=== PATIENT | female | born 1995 | race Two or more races ===

== ENCOUNTER 2018-05-10 10:52 | Outpatient (CLI) | payer OTHER ==
[~2018-05-10] VITALS: Ht 165.1 cm; Wt 82.7 kg
[2018-05-10 11:18] VITALS: BP 94/59
[2018-05-10] MEDS ORDERED: PREN-3 PO (11:46)
== END 2018-05-10 12:10 | disposition home or self-care (01) ==
LOC: LDOP 10:52
PROVIDERS: ATTEND Obstetrics & Gynecology
DX: O99.413 Diseases of the circulatory system complicating pregnancy, third trimester (principal); Z3A.38 38 weeks gestation of pregnancy
CPT/HCPCS: 59025; 76819; 99211; G0463

== ENCOUNTER 2018-05-22 22:45 | Outpatient (CLI) | payer OTHER ==
[~2018-05-22] VITALS: Ht 165.1 cm; Wt 82.0 kg
[~2018-05-22 22:45] MED LIST: PREN-3 PO
[2018-05-23] MEDS ORDERED: ZOLPIDEM 5MG TABLET ONE (02:33)
[2018-05-23] MEDS ORDERED: ZOLPIDEM 5MG TABLET PO SCH (21:00)
== END 2018-05-23 02:45 | disposition home or self-care (01) ==
LOC: LDOP 22:45
PROVIDERS: ATTEND Obstetrics & Gynecology
DX: Z34.80 Encounter for supervision of other normal pregnancy, unspecified trimester (principal); Z3A.00 Weeks of gestation of pregnancy not specified
CPT/HCPCS: 59025; 99211; G0463

== ENCOUNTER 2018-05-23 08:39 | Outpatient (CLI) | payer OTHER ==
[~2018-05-23] VITALS: Ht 165.1 cm; Wt 82.7 kg
[2018-05-23 09:39] VITALS: BP 116/64
== END 2018-05-23 10:08 | disposition home or self-care (01) ==
LOC: LDOP 08:39
PROVIDERS: ATTEND Obstetrics & Gynecology
DX: Z34.80 Encounter for supervision of other normal pregnancy, unspecified trimester (principal); Z3A.00 Weeks of gestation of pregnancy not specified
CPT/HCPCS: 59025; 99211; G0463

== ENCOUNTER 2018-05-23 21:25 | Inpatient (IN) | payer OTHER ==
[~2018-05-23] VITALS: Ht 165.1 cm; Wt 84.0 kg
[~2018-05-23 21:25] MED LIST changes: +CARBOPROST TROMETHAMINE 250 MCG/ML, 1ML IM ONE; +METHYLERGONOVINE 0.2 MG/ML IM ONE
[2018-05-23] MEDS ORDERED: LACTATED RINGERS 1,000 ML IV SCH ×2 (21:31→21:34)
[2018-05-23] MEDS ORDERED: D5%-LACTATED RINGERS 1,000 ML IV SCH (21:31)
[2018-05-23] MEDS ORDERED: OXYTOCIN 30U/ 0.9% NaCL 500ML 500 ML IV PRN (21:31)
[2018-05-23] MEDS ORDERED: OXYTOCIN 30U/ 0.9% NaCL 500ML 500 ML IV ONE (21:31)
[2018-05-23] MEDS ORDERED: FENTANYL/BUPIV./NS/PF 250 ML EPIDCONT SCH (21:34)
[2018-05-23] MEDS ORDERED: FENTANYL PF 100 MCG/2ML ONE ×3 (21:37→22:40)
[2018-05-23] MEDS ORDERED: NEWBORN KIT ONE (21:37)
[2018-05-23] MEDS ORDERED: OXYTOCIN 30U/ 0.9% NaCL 500ML 500 ML ONE (21:37)
[2018-05-23] MEDS: FENTANYL PF 100 MCG/2ML IVPush PRN ×2 (21:46→22:34)
[2018-05-23] MEDS ORDERED: CALCIUM CARBONATE 500 MG TAB.CHEW PO PRN (22:00)
[2018-05-23] MEDS ORDERED: ONDANSETRON 2MG/ML, 2ML IVPush PRN (22:00)
[2018-05-23] MEDS ORDERED: FENTANYL PF 100 MCG/2ML IV PRN (22:00)
[2018-05-23] MEDS ORDERED: LACTATED RINGERS 1,000 ML IVBOLUS PRN (22:00)
[2018-05-23] MEDS ORDERED: TERBUTALINE 1 MG/ML, 1ML IVPush PRN (22:00)
[2018-05-23 22:02] LABS: BASOPHILS # (AUTO) 0.08 x10^3/uL (0-0.3); BASOPHILS % (AUTO) 1 % (0-1); EOSINOPHILS % (AUTO) 0 % (1-7); LYMPHOCYTES # (AUTO) 1.09 x10^3/uL (1-6.1); LYMPHOCYTES % (AUTO) 8 % (22-44); MD NO; MEAN CORPUSCULAR HEMOGLOBIN 26.9 pg (27.0-34.8); MEAN CORPUSCULAR VOLUME 81.3 fL (80-100); MEAN PLATELET VOLUME 9.9 fL (7.4-10.4); MONOCYTES # (AUTO) 0.87 x10^3/uL (0-1.4); MONOCYTES % (AUTO) 6 % (2-9); NEUTROPHILS # (AUTO) 11.77 x10^3/uL (1.8-8.0); NEUTROPHILS % (AUTO) 85 % (42-75); PLATELET COUNT 223 x10^3/uL (130-400); RED BLOOD COUNT 4.32 x10^6/uL (3.82-5.3); RED CELL DISTRIBUTION WIDTH 20.8 % (9.6-15.2)
[2018-05-23] MEDS ORDERED: BUPIVACAINE 0.25% ONE ×2 (22:10→22:14)
[2018-05-24] MEDS ORDERED: METHYLERGONOVINE 0.2 MG/ML IM ONE (12:00)
[2018-05-24] MEDS ORDERED: OXYcodone/APAP 5/325MG TABLET ONE (12:25)
[2018-05-24] MEDS ORDERED: OXYTOCIN 30U/ 0.9% NaCL 500ML 500 ML ONE (12:25)
[2018-05-24] MEDS ORDERED: IBUPROFEN 600 MG TABLET ONE (12:26)
[2018-05-24] MEDS ORDERED: HYDROcodone/APAP 5/325 TABLET ONE (12:29)
[2018-05-24] MEDS: IBUPROFEN 600 MG TABLET PO PRN ×2 (12:30→18:58)
[2018-05-24] MEDS ORDERED: CARBOPROST TROMETHAMINE 250 MCG/ML, 1ML IM PRN (12:30)
[2018-05-24] MEDS ORDERED: ONDANSETRON 2MG/ML, 2ML IV PRN (12:30)
[2018-05-24] MEDS: HYDROcodone/APAP 5/325 TABLET PO PRN ×2 (12:30→20:21)
[2018-05-24] MEDS ORDERED: METHYLERGONOVINE 0.2 MG/ML IM PRN (12:30)
[2018-05-24] MEDS ORDERED: MISOPROSTOL 200 MCG TABLET PR PRN (12:30)
[2018-05-24] MEDS ORDERED: OXYTOCIN 10 UNITS/ML, 1ML IM PRN (12:30)
[2018-05-24] MEDS ORDERED: ACETAMINOPHEN 325 MG TABLET PO PRN (12:30)
[2018-05-24] MEDS ORDERED: HYDROcodone/APAP 5/325 TABLET PO PRN (12:30)
[2018-05-24] MEDS: OXYTOCIN 30U/ 0.9% NaCL 500ML 500 ML IV SCH ×2 (12:31→22:09)
[2018-05-24 14:00] VITALS: BP 108/71
[2018-05-24 17:02] VITALS: BP 99/63
[2018-05-24] MEDS: DOCUSATE 100 MG CAPSULE PO PRN (20:18)
[2018-05-24 20:45] VITALS: BP 100/62
[2018-05-24 20:54] LABS: MEAN CORPUSCULAR HEMOGLOBIN 27.1 pg (27.0-34.8); MEAN CORPUSCULAR HGB CONC 32.9 g/dL (32.4-35.8); MEAN CORPUSCULAR VOLUME 82.2 fL (80-100); MEAN PLATELET VOLUME 10.2 fL (7.4-10.4); PLATELET COUNT 171 x10^3/uL (130-400); RED BLOOD COUNT 3.79 x10^6/uL (3.82-5.3); RED CELL DISTRIBUTION WIDTH 20.5 % (9.6-15.2)
[2018-05-24 20:58] LABS: <PLATELET ESTIMATE> ADEQUATE; <PLT MORPHOLOGY> NORMAL PLT MORPH; ANISOCYTOSIS 1+; BASOPHILS # (AUTO) 0.02 x10^3/uL (0-0.3); BASOPHILS % (AUTO) 0 % (0-1); EOSINOPHILS # (AUTO) 0.01 x10^3/uL (0-0.8); EOSINOPHILS % (AUTO) 0 % (1-7); LYMPHOCYTES % (AUTO) 5 % (22-44); MD MORPH REVIEW ONLY; MONOCYTES # (AUTO) 1.23 x10^3/uL (0-1.4); MONOCYTES % (AUTO) 8 % (2-9); NEUTROPHILS # (AUTO) 14.43 x10^3/uL (1.8-8.0); NEUTROPHILS % (AUTO) 88 % (42-75); OVALOCYTES 1+
[2018-05-25 00:35] VITALS: BP 98/59
[2018-05-25] MEDS: IBUPROFEN 600 MG TABLET PO PRN ×4 (01:25→21:14)
[2018-05-25] MEDS: HYDROcodone/APAP 5/325 TABLET PO PRN ×5 (01:25→21:15)
[2018-05-25 05:23] VITALS: BP 92/59
[2018-05-25 07:06] VITALS: BP 91/60
[2018-05-25] MEDS: PRENATAL VIT/IRON/FA 1 EACH TABLET PO SCH (07:46)
[2018-05-25] MEDS: DOCUSATE 100 MG CAPSULE PO PRN ×2 (07:46→21:18)
[2018-05-25] MEDS: OXYTOCIN 30U/ 0.9% NaCL 500ML 500 ML IV SCH ×2 (08:09→18:09)
[2018-05-25 12:20] VITALS: BP 95/64
[2018-05-25 19:30] VITALS: BP 104/72
[2018-05-26] MEDS: OXYTOCIN 30U/ 0.9% NaCL 500ML 500 ML IV SCH (04:09)
[2018-05-26] MEDS: HYDROcodone/APAP 5/325 TABLET PO PRN ×2 (07:35→12:27)
[2018-05-26] MEDS: DOCUSATE 100 MG CAPSULE PO PRN (07:35)
[2018-05-26] MEDS: PRENATAL VIT/IRON/FA 1 EACH TABLET PO SCH (07:35)
[2018-05-26] MEDS ORDERED: IBUP-1222 PO (09:48)
[2018-05-26] MEDS ORDERED: HYDR-3240 PO (09:48)
[2018-05-26 10:00] VITALS: BP 116/64
[2018-05-26] MEDS: IBUPROFEN 600 MG TABLET PO PRN (10:15)
[2018-05-26] MEDS ORDERED: MEASLES,MUMPS&RUBELLA VACC/PF 0.5 ML SQ-VACC ONE (10:30)
== END 2018-05-26 13:00 | disposition home or self-care (01) | DRG 775 ==
LOC: LDOP 21:25 → LDIP 21:36 → 2NW 05-24 13:28
PROVIDERS: ADMIT Obstetrics & Gynecology; ATTEND Obstetrics & Gynecology
PROC: 10E0XZZ Delivery of Products of Conception, External Approach (ICD-10-PCS; principal; 2018-05-24)
PROC: 0KQM0ZZ Repair Perineum Muscle, Open Approach (ICD-10-PCS; 2018-05-24)
PROC: 3E0R3BZ Introduction of Anesthetic Agent into Spinal Canal, Percutaneous Approach (ICD-10-PCS; 2018-05-24)
PROC: 00HU33Z Insertion of Infusion Device into Spinal Canal, Percutaneous Approach (ICD-10-PCS; 2018-05-24)
DX: O48.0 Post-term pregnancy (principal); Z37.0 Single live birth; O12.04 Gestational edema, complicating childbirth; O35.9XX0 Maternal care for (suspected) fetal abnormality and damage, unspecified, not applicable or unspecified; O70.1 Second degree perineal laceration during delivery; Z3A.40 40 weeks gestation of pregnancy; Z23 Encounter for immunization
CPT/HCPCS: 36415; J7121; 85025; 86850; 86900; 88307; J3010; J3490; J2210; J2590; J7120